=== PATIENT | female | born 1990 | race Caucasian/White ===

== ENCOUNTER 2019-02-04 10:34 | Observation (INO) ==
[2019-02-04] MEDS ORDERED: Ondansetron ODT 4 MG TAB.RAPDIS SL ONE (11:13)
[2019-02-04 11:21] LABS: Bilirubin,Urine Negative (Negative); Blood,Urine Negative (Negative); Clarity,Urine Cloudy (Clear); Color,Urine Yellow (Yellow); Glucose,Urine (UA) Normal (Normal); Ketones,Urine Negative (Negative); Leukocyte Esterase,Urine Large (Negative); Nitrite,Urine Negative (Negative); Protein,Urine Negative (Neg-Trace); Specific Gravity,Urine 1.012 (1.010-1.025); Urobilinogen,Urine Normal (Normal)
[2019-02-04 11:23] LABS: Bacteria,Urine Few per hpf (None-Few); Hyaline Casts,Urine None Seen per lpf (None-Few); Squamous Epithelial Cell,Urine Many per lpf (None-Few); WBC,Urine 30-50 per hpf (0-3)
[2019-02-04 11:31] LABS: Amphetamine Screen,Urine Negative ng/mL (Cutoff=1000); Barbiturate Screen,Urine Negative ng/mL (Cutoff=200); Benzodiazepines Screen,Urine Negative ng/mL (Cutoff=200); Cannabinoid Screen,Urine Negative ng/mL (Cutoff = 50); Cocaine Screen,Urine Negative ng/mL (Cutoff= 300); Opiate Screen,Urine Negative ng/mL (Cutoff=300); Phencyclidine Screen,Urine Negative ng/mL (Cutoff=25)
== END 2019-02-04 13:39 | disposition home or self-care (01) ==
LOC: 1NENULAB
PROVIDERS: ADMIT Obstetrics & Gynecology; ATTEND Obstetrics & Gynecology

== ENCOUNTER 2019-02-17 04:41 | Inpatient (IN) ==
[2019-02-17] MEDS ORDERED: *HR* Nalbuphine 10 MG/ML AMPUL IVP PRN (05:08)
[2019-02-17] MEDS ORDERED: Ondansetron 4 MG/2 ML VIAL IVP PRN ×2 (05:08→08:30)
[2019-02-17] MEDS ORDERED: Naloxone 0.4 MG/ML INJ IVP PRN ×2 (05:08→08:30)
[2019-02-17] MEDS ORDERED: Famotidine 20 MG/2 ML VIAL IVP PRN (05:08)
[2019-02-17] MEDS ORDERED: Lidocaine 1% 20 ML MDV ID PRN (05:08)
[2019-02-17] MEDS ORDERED: Metoclopramide 10 MG/2 ML VIAL IVP PRN (05:08)
[2019-02-17] MEDS ORDERED: miSOPROStol 25 MCG TABLET PO PRN (05:12)
[2019-02-17] MEDS ORDERED: Penicillin G Potassium 5,000,000 UNIT in 0.9 % Sodium Chloride Mini Bag 100 ML IVPB ONE (05:13)
[2019-02-17] MEDS ORDERED: D5% in 0.45% NACL 1,000 ML IVC SCH (05:15)
[2019-02-17] MEDS ORDERED: D5% in 0.45% NACL 1,000 ML IVC ONE (05:28)
[2019-02-17] MEDS ORDERED: Ringers Solution, Lactated 1,000 ML ONE ×3 (05:37→13:48)
[2019-02-17 05:41] LABS: Basophils % 0.2 %; Eosinophils # 0.1 K/mcL (0.0-0.6); Eosinophils % 0.8 %; Hematocrit 36.8 % (35.3-44.9); Hemoglobin 12.2 g/dL (11.5-15.4); Immature Granulocytes % 1.2 % (0-4); Lymphocytes # 2.4 K/mcL (0.6-4.6); Lymphocytes % 21.6 %; Mean Corpuscular HGB Conc 33.2 g/dL (31.6-35.5); Mean Corpuscular Hemoglobin 28.2 pg (28.0-33.3); Mean Platelet Volume 11.2 fL (9.4-12.4); Monocytes # 0.7 K/mcL (0.0-1.3); Monocytes % 6.3 %; Neutrophils # 7.7 K/mcL (1.6-8.9); Platelet Count 269 K/mcL (140-400); Red Blood Count 4.33 M/mcL (3.82-4.97); Red Cell Distribution Width 12.9 % (11.5-14.5); Segmented Neutrophils % 69.9 %
[2019-02-17] MEDS ORDERED: *HR* FentaNYL (PF) 100 MCG/2 ML VIAL EP ONE (08:25)
[2019-02-17] MEDS ORDERED: Ropivacaine/PF 0.2% 20 ML VIAL EP ONE (08:30)
[2019-02-17] MEDS ORDERED: Bupivacaine-MPF 0.25% 10 ML VIAL EP ONE (08:30)
[2019-02-17] MEDS ORDERED: EPHEDrine 50 MG/ML VIAL IVP PRN (08:30)
[2019-02-17 09:25] LABS: Amphetamine Screen,Urine Negative ng/mL (Cutoff=1000); Barbiturate Screen,Urine Negative ng/mL (Cutoff=200); Benzodiazepines Screen,Urine Negative ng/mL (Cutoff=200); Cannabinoid Screen,Urine Negative ng/mL (Cutoff = 50); Cocaine Screen,Urine Negative ng/mL (Cutoff= 300); Opiate Screen,Urine Negative ng/mL (Cutoff=300); Phencyclidine Screen,Urine Negative ng/mL (Cutoff=25)
[2019-02-17] MEDS: Penicillin G Potassium 2,500,000 UNIT in 0.9 % Sodium Chloride 100 ML IVPB SCH ×4 (10:34→22:57)
[2019-02-17] MEDS ORDERED: Ropivacaine/PF 0.2% 20 ML VIAL ONE (14:00)
[2019-02-17] MEDS ORDERED: *HR* FentaNYL (PF) 100 MCG/2 ML VIAL ONE (14:00)
[2019-02-17] MEDS ORDERED: *HR* Phenylephrine 10 MG/ML VIAL ONE (14:02)
[2019-02-17] MEDS ORDERED: Oxytocin 20 units/ LR 1000 mL 20 UNIT/1,000 ML BAG IVC SCH (16:00)
[2019-02-17] MEDS ORDERED: Oxytocin 20 units/ LR 1000 mL 20 UNIT/1,000 ML BAG IVC ONE (16:02)
[2019-02-17] MEDS ORDERED: Acetaminophen 325 MG TABLET PO STA (20:00)
[2019-02-17] MEDS ORDERED: Acetaminophen 325 MG TABLET PO ONE (20:04)
[2019-02-17] MEDS: Epidural Premix (fent/bupiv) 110 ML EP SCH (20:38)
[2019-02-18] MEDS ORDERED: Ringers Solution, Lactated 500 ML ONE
[2019-02-18] MEDS ORDERED: Ringers Solution, Lactated 1,000 ML ONE ×2 (00:01→02:53)
[2019-02-18] MEDS ORDERED: Ropivacaine/PF 0.2% 20 ML VIAL ONE (00:35)
[2019-02-18] MEDS: Epidural Premix (fent/bupiv) 110 ML EP SCH (02:01)
[2019-02-18] MEDS ORDERED: Lidocaine -MPF 2% 5 ML VIAL ONE (02:57)
[2019-02-18] MEDS ORDERED: *HR* Morphine Sulfate/PF 10 MG/10 ML AMPUL ONE (02:58)
[2019-02-18] MEDS ORDERED: *HR* Oxytocin 10 UNIT/ML VIAL IM ONE (03:01)
[2019-02-18] MEDS ORDERED: *HR* Propofol 200 MG/20 ML VIAL IVP ONE ×2 (03:15→03:36)
[2019-02-18] MEDS ORDERED: *HR* FentaNYL (PF) 100 MCG/2 ML VIAL ONE (03:20)
[2019-02-18] MEDS ORDERED: Ibuprofen 400 MG TABLET PO PRN (03:27)
[2019-02-18] MEDS ORDERED: *HR* OxyCODONE/APAP 5/325 TABLET PO PRN (03:27)
[2019-02-18] MEDS ORDERED: Ondansetron 4 MG/2 ML VIAL IVP PRN ×2 (03:27→06:17)
[2019-02-18] MEDS ORDERED: Acetaminophen IV 1,000 MG/100 ML INFUS..BTL IVPB ONE (03:28)
[2019-02-18] MEDS ORDERED: Rho Immune Globulin 1,500 UNIT SYRINGE IM ONE ×2 (06:17→17:17)
[2019-02-18] MEDS ORDERED: Simethicone 80 MG TAB.CHEW PO PRN (06:17)
[2019-02-18] MEDS ORDERED: Metoclopramide 10 MG/2 ML VIAL IVP PRN (06:17)
[2019-02-18] MEDS ORDERED: Sennosides 8.6 MG TABLET PO PRN (06:17)
[2019-02-18] MEDS ORDERED: Oxytocin 20 units/ LR 1000 mL 20 UNIT/1,000 ML BAG IVC SCH (06:17)
[2019-02-18] MEDS ORDERED: *HR* OxyCODONE Immed Rel 5 MG TABLET PO PRN (06:17)
[2019-02-18] MEDS ORDERED: Acetaminophen 325 MG TABLET PO SCH (06:17)
[2019-02-18] MEDS: Ibuprofen 600 MG TABLET PO SCH ×4 (06:30→20:42)
[2019-02-18] MEDS: metroNIDAZOLE 500 MG TABLET PO SCH ×3 (09:56→20:43)
[2019-02-18] MEDS: cephALEXin 500 MG CAPSULE PO SCH ×3 (09:56→20:43)
[2019-02-19] MEDS: Ibuprofen 600 MG TABLET PO SCH ×3 (02:11→18:12)
[2019-02-19] MEDS: Prenatal Vit/FA 1 EACH TABLET PO SCH (08:24)
[2019-02-19] MEDS: cephALEXin 500 MG CAPSULE PO SCH ×3 (08:24→20:29)
[2019-02-19] MEDS: metroNIDAZOLE 500 MG TABLET PO SCH ×3 (08:24→20:29)
[2019-02-19 11:08] LABS: Basophils % 0.3 %; Eosinophils # 0.1 K/mcL (0.0-0.6); Eosinophils % 0.4 %; Hematocrit 28.1 % (35.3-44.9); Immature Granulocytes % 1.2 % (0-4); Lymphocytes # 1.5 K/mcL (0.6-4.6); Mean Corpuscular HGB Conc 33.8 g/dL (31.6-35.5); Mean Corpuscular Hemoglobin 28.4 pg (28.0-33.3); Mean Corpuscular Volume 84.1 fL (83.0-100.0); Monocytes # 0.9 K/mcL (0.0-1.3); Monocytes % 5.8 %; Neutrophils # 12.4 K/mcL (1.6-8.9); Platelet Count 271 K/mcL (140-400); Red Blood Count 3.34 M/mcL (3.82-4.97); Red Cell Distribution Width 13.5 % (11.5-14.5); Segmented Neutrophils % 82.3 %
[2019-02-19 11:09] LABS: Hemoglobin 9.5 g/dL (11.5-15.4)
[2019-02-20] MEDS: Ibuprofen 600 MG TABLET PO SCH ×3 (00:28→13:12)
[2019-02-20 07:37] VITALS: BP 119/79
[2019-02-20] MEDS: Prenatal Vit/FA 1 EACH TABLET PO SCH (08:41)
== END 2019-02-20 15:24 | disposition home or self-care (01) | DRG 540 ==
LOC: 1NENULAB 04:41 → 1NENUOBS 02-18 06:18
PROVIDERS: ADMIT Obstetrics & Gynecology; ATTEND Obstetrics & Gynecology